=== PATIENT | female | born 1955 | race Caucasian/White ===

== ENCOUNTER → 2017-01-01 | Outpatient (CLI) | payer MEDICARE, OTHER ==
[2016-07-11 15:30] VITALS: BP 154/58
[~2017-01-01] MED LIST: APIX5TAB PO; ASPI-482 PO; CALC-98 PO; ESOM40CA PO; FLEC100T PO; FLUV40CA PO; FLUV80TA PO; INSU100I13 SQ; INSU100I17 SQ; INSU100I27 SQ; INSU100V13 SQ; INSU200I SQ; ISOM1TAB PO; LEVO100T PO; LOSA50TA2 PO; MAGN400C PO; MAGN71.5 PO; METF-620 PO; METO25TA4 PO; MULT1TAB52 PO; Metoprolol Tartrate PO; PANT40TA3 PO; POTA20TA4 PO; REGADENOSON 0.4 MG/5 ML DISP.SYRIN. IV ONE; TORS20TA PO; TORS20TA2 PO; VENTOLIN HFA18 GM IH
--- NOTE | 2017-01-01 13:41 | RAD ---
APPROVED REPORT Test Type: Pharmacological Stress Nurse/Tech: Sophia Dee R.N. Test Indications: Chest pain Cardiac History: Afib, HTN Medications: SEE EMR Medical History: CRI, CVA, DM Resting ECG: SB Resting Heart Rate: 53 bpm Resting Blood Pressure: 122/54mmHg Pretest Chest Pain: None Nurse/Tech Notes S1S2, lungs CTA, denied chest pain or SOA. Consent: The procedure was explained to the patient in lay terms. Informed consent was witnessed. Christopher eout was entered into [facility]. History and Stress Test performed by Sophia Dee R.N. Pharm. Details Pharmacologic stress testing was performed using 0.4mg per 5ml of regadenoson given intravenously ove r 7-10 seconds. Stress Symptoms Slightly SOA, nausea. POST EXERCISE Reason for Termination: Infusion complete Max HR: 93 bpm Max Blood Pressure: 144/64mmHg Blood Pressure response to exercise: Normal blood pressure response during stress. Heart Rate response to exercise: Normal Chest Pain: No. Arrhythmia: No. ST Change: Yes. Please evaluate for possible ST changes in aVR, V1, V2. INTERPRETATION Stress EKG Conclusion: Baseline EKG showed sinus rhythm. Rate dependant right bundle branch block wi thout any definite ischemic changes at peak stress. No arrhythmias. Imaging Protocol IMAGE PROTOCOL: Rest Tc-99m/stress Tc-99m 1 day Rest: Stress: Viability: Radiopharm.Tc99m [id number] Sestamibi Dose11.3mCi 35.6mCi Duration 15min. 10min. Img Date 01/01/2017 01/01/2017 Inj-Img Zirs01wsh. 60min. Rest Admin Site:IV - Left AntecubitalAdministrator:OMER Montejo Stress Admin Site: IV - Left AntecubitalAdministrator: OMER Montejo STRESS DATA End Diast. Vol.90.0mlAv. Heart Rate73.0bpm End Syst. Vol.25.0mlCO Index BSA4.8L/min Myocardial Slak672.0gEject. Exhnxcln33.0% Stress Rates Pk. Fill Rate2.67EDV/secLVtime Pk. Fill 116.38msec Pk. Empty Rate4.21ESV/secLVtime Pk. Npoud656.03msec 1/3 Pk. Fill1.84EDV/sec Stress Scores Regional WT1.00Summed WT15.00 Regional WM0.00Summed WM1.00 Study quality was good. Left Ventricular size was Normal at Rest and Stress. Lung uptake was Normal. Left Ventricular ejection fraction is 72%. The rest and stress images show normal perfusion, normal contraction and thickening. LV Perf. Quant 17 Seg. SSS0.00 17 Seg. SRS0.00 17 Seg. SDS0.00 Stress Defect Extent (% LAD)0.00Rest Defect Extent (% LAD)0.00Rev. Defect Extent (% LAD)0.00 Stress Defect Extent (% LCX) 0.00Rest Defect Extent (% LCX)0.00Rev. Defect Extent (% LCX)0.00 Stress Defect Extent (% RCA)0.00Rest Defect Extent (% RCA)0.00Rev. Defect Extent (% RCA)0.00 Stress Defect Extent (% SHANNEN)0.00Rest Defect Extent (% SHANNEN)0.00Rev. Defect Extent (% SHANNEN)0.00 Conclusion 1. Regadenoson cardioisotope stress test did not show any evidence of ischemia or infarct. 2. Normal left ventricular systolic function with ejection fraction calculated at 72%. 3. Low risk for cardiac events.
== END | disposition home or self-care (01) ==
LOC: NM 10:08
PROVIDERS: ATTEND Internal Medicine Cardiovascular Disease
DX: R07.9 Chest pain, unspecified (principal); R06.02 Shortness of breath
CPT/HCPCS: 78452; 93017; 96374; 96375; 96376; A9500; J2785

== ENCOUNTER 2017-04-18 15:57 | Emergency (ER) | payer MEDICARE, OTHER ==
[~2017-04-18 15:57] MED LIST changes: -REGADENOSON 0.4 MG/5 ML DISP.SYRIN. IV ONE
[2017-04-18] MEDS ORDERED: fentaNYL PF VIAL 100 MCG/2 ML VIAL IV PRN (17:00)
[2017-04-18] MEDS ORDERED: IV NORMAL SALINE 500ML BAG 500 ML IV ONE (17:00)
[2017-04-18] MEDS ORDERED: ONDANSETRON PF 4 MG/2 ML VIAL. IV ONE (17:00)
[2017-04-18 17:05] LABS: BASO % 0 % (0-3); EOS % 2 % (0-3); HEMATOCRIT 33.7 % (36.0-47.0); HEMOGLOBIN 11.3 g/dL (12.0-15.5); LYMPH % 19 % (24-48); MEAN CORPUSCULAR HEMOGLOBIN 31 pg (25-35); MEAN CORPUSCULAR HGB CONC 34 g/dL (31-37); MEAN CORPUSCULAR VOLUME 91 fL (79-100); MONO % 7 % (0-9); NEUT % 71 % (31-73); PLATELET COUNT 289 x10^3/uL (140-400); RED CELL DISTRIBUTION WIDTH 13.7 % (11.5-14.5); WHITE BLOOD COUNT 10.7 x10^3/uL (4.0-11.0)
[2017-04-18 17:07] LABS: BILIRUBIN,URINE NEGATIVE (NEG); GLUCOSE,URINE NEGATIVE (NEG); NITRITE,URINE NEGATIVE (NEG); PROTEIN,URINE NEGATIVE (NEG-TRACE); UROBILINOGEN,URINE 0.2 mg/dL (0.2 mg/dL)
[2017-04-18 17:13] LABS: BACTERIA,URINE MODERATE /HPF (0-FEW); RBC,URINE 0 /HPF (0-2); SQUAMOUS EPITHELIAL CELL,UR MANY /LPF
[2017-04-18] MEDS ORDERED: IOHEXOL 300 MG/ML 75 ML VIAL IV ONE (17:30)
[2017-04-18] MEDS ORDERED: CONTRAST GIVEN MC PRN (17:30)
[2017-04-18 17:41] LABS: CREATININE 1.2 mg/dL (0.6-1.0); GFR 45.2; POTASSIUM 4.1 mmol/L (3.5-5.1)
[2017-04-18 17:47] LABS: ALBUMIN 3.4 g/dL (3.4-5.0); ALBUMIN/GLOBULIN RATIO 0.9 (1.0-1.7); TOTAL BILIRUBIN 0.3 mg/dL (0.2-1.0); TOTAL PROTEIN 7.3 g/dL (6.4-8.2)
--- NOTE | 2017-04-18 18:02 | PHYS DOC ---
Past Medical History Past Medical History: A-Fib, Asthma, Diabetes-Type II, GERD, High Cholesterol, Hypertension, Hypothyroid Past Surgical History: Angioplasty, Cholecystectomy, , Lumbar Laminectomy, Tubal ligation Additional Past Surgical Histo: cataract Alcohol Use: Rarely Drug Use: None Adult General Chief Complaint Chief Complaint: ABDOMINAL PAIN HPI HPI Patient is a 62 year old female who presents with abdominal pain. Patient reports onset of pain at 0800 this morning to right lower quadrant and right mid abdomen. Denies radiation of pain. Reports nausea. Denies fevers or chills, vomiting, diarrhea or constipation, dysuria or hematuria, vaginal bleeding or discharge. Denies history of previous similar pain. History of and cholecystectomy. Review of Systems Review of Systems Constitutional: Denies fever or chills Eyes: Denies change in visual acuity HENT: Denies nasal congestion or sore throat Respiratory: Denies cough or shortness of breath Cardiovascular: Denies chest pain or edema GI: Reports abdominal pain, nausea, denies vomiting, bloody stools or diarrhea : Denies dysuria or hematuria Musculoskeletal: Denies back pain or joint pain Integument: Denies rash or skin lesions Neurologic: Denies headache, focal weakness or sensory changes Current Medications Current Medications Current Medications Medications (Trade) Dose Ordered Sig/Kenroy Start Time Stop Time Status Last Admin Dose Admin Ciprofloxacin (Cipro) 500 mg 1X ONCE 04/18/17 19:00 04/18/17 19:01 DC Fentanyl Citrate (Fentanyl 2ml Vial) 50 mcg PRN Q15MIN PRN 04/18/17 17:00 04/19/17 16:59 04/18/17 17:30 50 MCG Info (Do NOT chart on this entry -- for MONITORING) 1 each PRN DAILY PRN 04/18/17 17:30 04/20/17 17:29 Iohexol (Omnipaque 300 Mg/ml) 75 ml 1X ONCE 04/18/17 17:30 04/18/17 17:31 DC 04/18/17 18:03 75 ML Metronidazole (Flagyl) 500 mg 1X ONCE 04/18/17 19:00 04/18/17 19:01 DC Ondansetron HCl (Zofran) 4 mg 1X ONCE 04/18/17 17:00 04/18/17 17:01 DC 04/18/17 17:29 4 MG Sodium Chloride 500 ml @ 0 mls/hr 1X ONCE 04/18/17 17:00 04/18/17 17:01 DC 04/18/17 17:28 999 MLS/HR Allergies Allergies Allergies Coded Allergies Type Severity Reaction Last Updated Verified Sulfa (Sulfonamide Antibiotics) Allergy Intermediate 07/11/16 No hydrochlorothiazide Allergy Intermediate Rash 07/11/16 Yes hydrocodone Allergy Intermediate 07/11/16 No hydroxyzine Allergy Intermediate 07/11/16 Yes acetaminophen Adverse Reaction Intermediate Nausea and Vomiting 07/11/16 Yes oxycodone Adverse Reaction Intermediate Nausea and Vomiting 07/11/16 Yes Physical Exam Physical Exam Constitutional: Obese, no acute distress, non-toxic appearance. HENT: Normocephalic, atraumatic, bilateral external ears normal, oropharynx moist, nose normal. Eyes: PERRLA, EOMI, conjunctiva normal, no discharge. Neck: supple, no stridor. Cardiovascular: RRR, no murmurs, no edema. Lungs & Thorax: LCTAB, no wheezing, no respiratory distress. Abdomen: soft, right lower quadrant and right mid abdominal tenderness without rebound tenderness, guarding is present, no masses or pulsatile masses, nondistended. Skin: Warm, dry, no erythema, no rash. Back: Right CVA tenderness is present Extremities: No tenderness, no edema. Neurologic: Alert and oriented X 3, no focal deficits noted. Psychologic: Affect normal, judgement normal, mood normal. Current Patient Data Vital Signs Vital Signs Date Time Temp Pulse Resp B/P (MAP) Pulse Ox O2 Delivery O2 Flow Rate FiO2 04/18/17 18:28 81 18 117/56 (76) 95 Room Air 04/18/17 16:10 98.9 98.9 Lab Values Laboratory Tests Test 04/18/17 16:10 04/18/17 16:15 Urine Collection Type Void Urine Color Yellow Urine Clarity Clear Urine pH 5.0 Urine Specific L[place]ner 1.025 Urine Protein Negative mg/dL (NEG-TRACE) Urine Glucose (UA) Negative mg/dL (NEG) Urine Ketones (Stick) Negative mg/dL (NEG) Urine Blood Negative (NEG) Urine Nitrite Negative (NEG) Urine Bilirubin Negative (NEG) Urine Urobilinogen Dipstick 0.2 mg/dL (0.2 mg/dL) Urine Leukocyte Esterase Negative (NEG) Urine RBC 0 /HPF (0-2) Urine WBC 1-4 /HPF (0-4) Urine Squamous Epithelial Cells Many /LPF Urine Bacteria Moderate /HPF (0-FEW) Urine Mucus Marked /LPF White Blood Count 10.7 x10^3/uL (4.0-11.0) Red Blood Count 3.70 x10^6/uL (3.50-5.40) Hemoglobin 11.3 g/dL (12.0-15.5) L Hematocrit 33.7 % (36.0-47.0) L Mean Corpuscular Volume 91 fL (79-100) Mean Corpuscular Hemoglobin 31 pg (25-35) Mean Corpuscular Hemoglobin Concent 34 g/dL (31-37) Red Cell Distribution Width 13.7 % (11.5-14.5) Platelet Count 289 x10^3/uL (140-400) Neutrophils (%) (Auto) 71 % (31-73) Lymphocytes (%) (Auto) 19 % (24-48) L Monocytes (%) (Auto) 7 % (0-9) Eosinophils (%) (Auto) 2 % (0-3) Basophils (%) (Auto) 0 % (0-3) Neutrophils # (Auto) 7.6 x10^3uL (1.8-7.7) Lymphocytes # (Auto) 2.0 x10^3/uL (1.0-4.8) Monocytes # (Auto) 0.8 x10^3/uL (0.0-1.1) Eosinophils # (Auto) 0.2 x10^3/uL (0.0-0.7) Basophils # (Auto) 0.0 x10^3/uL (0.0-0.2) Sodium Level 142 mmol/L (136-145) Potassium Level 4.1 mmol/L (3.5-5.1) Chloride Level 106 mmol/L (98-107) Carbon Dioxide Level 25 mmol/L (21-32) Anion Gap 11 (6-14) Blood Urea Nitrogen 22 mg/dL (7-20) H Creatinine 1.2 mg/dL (0.6-1.0) H Estimated GFR (Cockcroft-Gault) 45.2 BUN/Creatinine Ratio 18 (6-20) Glucose Level 141 mg/dL (70-99) H Calcium Level 9.0 mg/dL (8.5-10.1) Total Bilirubin 0.3 mg/dL (0.2-1.0) Aspartate Amino Transferase (AST) 23 U/L (15-37) Alanine Aminotransferase (ALT) 31 U/L (14-59) Alkaline Phosphatase 92 U/L (46-116) Total Protein 7.3 g/dL (6.4-8.2) Albumin 3.4 g/dL (3.4-5.0) Albumin/Globulin Ratio 0.9 (1.0-1.7) L Laboratory Tests 04/18/17 16:15 Laboratory Tests 04/18/17 16:15 EKG EKG [] Radiology/Procedures Radiology/Procedures [facility] [address] [place], [place] [id number] IMAGING REPORT Signed PATIENT: PAM THOMAS ACCOUNT: [id number] : 1955 LOCATION: ER AGE: 62 SEX: F EXAM STATUS: REG ER ORD. PHYSICIAN: SUNNY MADRID MD REASON: RLQ pain r/o appenditicis PROCEDURE: CT ABD PELV W/ IV CONTRST ONLY CT ABD PELV W/ IV CONTRST ONLY dated 04/18/2017 6:03 PM Indication: Right-sided abdominal pain, pain for 2 days possible appendicitis pain Comparison: No comparison is available. Technique: Contiguous axial imaging of the abdomen and pelvis performed after the administration of 60 cc Isovue-370. One or more of the following individualized dose reduction techniques were utilized for this examination: 1. Automated exposure control 2. Adjustment of the mA and/or kV according to patient size 3. Use of iterative reconstruction technique Findings: Limited images of the lung bases are clear. Heart size mildly enlarged. No pleural or pericardial effusion. Liver, spleen, pancreas, adrenal glands unremarkable. Gallbladder surgically absent. There are 2 calcific stones at the lower pole left kidney measuring 3 to 4 mm in size each. No ureteral stone or hydronephrosis. Kidneys are otherwise unremarkable. There is a focal area of wall thickening and pericolonic inflammatory stranding involving the right colon just proximal to the hepatic flexure. No localized perforation or abscess. The appendix is normal in caliber. No ascites or lymphadenopathy. Images of pelvis show nondistended urinary bladder. Uterus and adnexa are unremarkable. No free fluid or lymphadenopathy. Bone windows show no acute findings. Mild multilevel spondylosis. IMPRESSION: 1. Findings consistent with acute right-sided diverticulitis. No localized perforation or abscess. 2. Normal appendix. 3. Left-sided nephrolithiasis, nonobstructive. 4. Status post cholecystectomy. Electronically signed by: Dmitry Murillo MD (04/18/2017 6:26 PM) [facility] [place] DICTATED and SIGNED BY: DMITRY MURILLO MD DATE: 04/18/171814 CC: HELENA LEON MD; SUNNY MADRID MD; DMITRY BATISTA MD ~ [] Course & Med Decision Making Course & Med Decision Making Pertinent Labs and Imaging studies reviewed. (See chart for details) The patient presents with abdominal pain and flank pain. Gave IV fluids, pain medication, antiemetics. Obtained labs and UA as above. Obtain CT of the abdomen and pelvis which is pending at the end of my shift. Will transfer care to Dr. Leon to disposition patient accordingly. She is in stable condition end of my shift. Sunny Madrid MD I took over care of patient at 1800. Patient's pain remained stable while in the emergency department. The patient's CT scan showed evidence of right-sided diverticulitis. Patient started on Flagyl and Cipro in the emergency department. Patient will continue on 10 day course of Flagyl and Cipro for outpatient treatment. Advised patient to follow-up with primary doctor in 3 days for reevaluation and recommended return to emergency department for any worsening symptoms. Patient voiced understanding and in agreement with treatment plan. Dragon Disclaimer Dragon Disclaimer This electronic medical record was generated, in whole or in part, using a voice recognition dictation system. Departure Departure Impression: Primary Impression: Diverticulitis Disposition: 01 HOME, SELF-CARE Condition: IMPROVED Referrals: DMITRY BATISTA MD (PCP) Patient Instructions: Diverticulitis Additional Instructions: Follow-up with your primary doctor in 3 days for reevaluation. Return to the emergency department for any worsening symptoms. Scripts Ondansetron (ZOFRAN ODT) 4 Mg Tab.rapdis 1 TAB SL Q8HRS Y for NAUSEA/VOMITING, #15 TAB Prov: HELENA LEON MD 04/18/17 Hydrocodone/Apap 5-325 (NORCO 5-325 TABLET) 1 Each Tablet 1-2 TAB PO Q4-6HRS Y for PAIN, #20 TAB Prov: HELENA LEON MD 04/18/17 Ciprofloxacin Hcl (CIPRO) 500 Mg Tablet 1 TAB PO BID, #20 TAB Prov: HELENA LEON MD 04/18/17 Metronidazole (FLAGYL) 500 Mg Tablet 500 MG PO TID, #30 TAB Prov: HELENA LEON MD 04/18/17 Problem Qualifiers Primary Impression: Diverticulitis Diverticulitis site: large intestine Diverticulitis bleeding: without bleeding Diverticulitis complication: without perforation or abscess Qualified Codes: K57.32 - Diverticulitis of large intestine without perforation or abscess without bleeding SUNNY MADRID MD Apr 18, 2017 18:02 HELENA LEON MD Apr 18, 2017 19:12
--- NOTE | 2017-04-18 18:29 | RAD ---
CT ABD PELV W/ IV CONTRST ONLY dated 04/18/2017 6:03 PM Indication: Right-sided abdominal pain, pain for 2 days possible appendicitis pain Comparison: No comparison is available. Technique: Contiguous axial imaging of the abdomen and pelvis performed after the administration of 60 cc Isovue-370. One or more of the following individualized dose reduction techniques were utilized for this examination: 1. Automated exposure control 2. Adjustment of the mA and/or kV according to patient size 3. Use of iterative reconstruction technique Findings: Limited images of the lung bases are clear. Heart size mildly enlarged. No pleural or pericardial effusion. Liver, spleen, pancreas, adrenal glands unremarkable. Gallbladder surgically absent. There are 2 calcific stones at the lower pole left kidney measuring 3 to 4 mm in size each. No ureteral stone or hydronephrosis. Kidneys are otherwise unremarkable. There is a focal area of wall thickening and pericolonic inflammatory stranding involving the right colon just proximal to the hepatic flexure. No localized perforation or abscess. The appendix is normal in caliber. No ascites or lymphadenopathy. Images of pelvis show nondistended urinary bladder. Uterus and adnexa are unremarkable. No free fluid or lymphadenopathy. Bone windows show no acute findings. Mild multilevel spondylosis. IMPRESSION: 1. Findings consistent with acute right-sided diverticulitis. No localized perforation or abscess. 2. Normal appendix. 3. Left-sided nephrolithiasis, nonobstructive. 4. Status post cholecystectomy. Electronically signed by: Dmitry Murillo MD (04/18/2017 6:26 PM) [facility]
[2017-04-18] MEDS ORDERED: metroNIDAZOLE 500 MG TABLET PO ONE (19:00)
[2017-04-18] MEDS ORDERED: CIPROFLOXACIN HCL 250 MG TABLET. PO ONE (19:00)
[2017-04-18] MEDS ORDERED: HYDR-971 PO (19:12)
[2017-04-18] MEDS ORDERED: CIPR500T94 PO (19:12)
[2017-04-18] MEDS ORDERED: METR500T PO (19:12)
[2017-04-18] MEDS ORDERED: ONDA4TAB10 SL (19:12)
[2017-04-18 19:31] VITALS: BP 111/63
== END 2017-04-18 19:31 | disposition home or self-care (01) ==
LOC: ER 15:57
DX: K57.92 Diverticulitis of intestine, part unspecified, without perforation or abscess without bleeding (principal); E11.9 Type 2 diabetes mellitus without complications; K21.9 Gastro-esophageal reflux disease without esophagitis; E78.00 Pure hypercholesterolemia, unspecified; I10 Essential (primary) hypertension; J45.909 Unspecified asthma, uncomplicated; I48.91 Unspecified atrial fibrillation; E03.9 Hypothyroidism, unspecified; Z90.49 Acquired absence of other specified parts of digestive tract; Z98.51 Tubal ligation status; Z98.890 Other specified postprocedural states; Z95.5 Presence of coronary angioplasty implant and graft; Z88.2 Allergy status to sulfonamides; Z88.5 Allergy status to narcotic agent; Z88.6 Allergy status to analgesic agent; Z88.8 Allergy status to other drugs, medicaments and biological substances
CPT/HCPCS: 36415; 74177; 80053; 81001; 85025; 87086; 96361; 96374; 96375; 99285; J2405; J3010; J7040; Q9967

== ENCOUNTER → 2017-09-25 | Outpatient (CLI) | payer MEDICARE, OTHER | END | disposition home or self-care (01) | LOC: KCIC DEXA 13:32 | DX: Z12.31 Encounter for screening mammogram for malignant neoplasm of breast (principal); Z13.820 Encounter for screening for osteoporosis; M81.0 Age-related osteoporosis without current pathological fracture; M85.88 Other specified disorders of bone density and structure, other site; Z78.0 Asymptomatic menopausal state | CPT/HCPCS: 77067; 77080 ==

== ENCOUNTER → 2017-09-29 | Outpatient (CLI) | payer MEDICARE, OTHER | END | disposition home or self-care (01) | LOC: KCIC US 13:47 | DX: R92.8 Other abnormal and inconclusive findings on diagnostic imaging of breast (principal) | CPT/HCPCS: 76641 ==

== ENCOUNTER 2018-05-12 09:27 | Observation (INO) | payer MEDICARE, OTHER ==
[~2018-05-12] VITALS: Ht 172.7 cm; Wt 112.5 kg
[2018-05-12] VITALS (12 sets, daily range): BP systolic 117–172; BP diastolic 53–76
[~2018-05-12 09:27] MED LIST changes: +CIPR500T94 PO; +HYDR-971 PO; -METF-620 PO; +METF10007 PO; +METR500T PO; +ONDA4TAB10 SL
[2018-05-12 10:02] LABS: HEMATOCRIT 35.6 % (36.0-47.0); HEMOGLOBIN 12.2 g/dL (12.0-15.5); RED BLOOD COUNT 3.84 x10^6/uL (3.50-5.40); RED CELL DISTRIBUTION WIDTH 13.6 % (11.5-14.5); WHITE BLOOD COUNT 7.9 x10^3/uL (4.0-11.0)
[2018-05-12 10:14] LABS: CALCIUM 9.3 mg/dL (8.5-10.1); CREATININE 1.5 mg/dL (0.6-1.0); GFR 34.9; POTASSIUM 4.3 mmol/L (3.5-5.1)
[2018-05-12 10:18] LABS: PROTHROMBIN TIME PATIENT 13.1 SEC (11.7-14.0)
[2018-05-12] MEDS ORDERED: IODIXANOL 320 MG/ML 100 ML VIAL. ONE (11:12)
[2018-05-12] MEDS ORDERED: LIDOCAINE 1% PF 30 ML VIAL. ONE (11:12)
[2018-05-12] MEDS ORDERED: fentaNYL PF VIAL 100 MCG/2 ML VIAL ONE (13:58)
[2018-05-12] MEDS ORDERED: MIDAZOLAM HCL/PF 2 MG/2 ML VIAL. ONE (13:58)
--- NOTE | 2018-05-12 14:03 | PDOC ---
MODERATE SEDATION ASSESSMENT RISKS/ALTERNATIVES Risks/Alternatives Risks and alternatives of this type of sedation and procedure discussed with: RISK/ALTERNATIVES: Patient H & P ON CHART H & P H & P on chart and reviewed for co-morbid conditions and appropriate labs. H&P ON CHART: Yes STATUS PREG STATUS ASSESSED: Yes MEDS/ALLERGIES REVIEWED Meds/Allergies Reviewed Medications and Allergies including time and route of recently administered narcotics and sedatives. MEDS/ALLERGIES REVIEWED: Yes ASA RATING ASA RATING: II AIRWAY ASSESSMENT Airway Assessment Airway patency, oral function limitations, presence of caps, crowns, dentures, partials, and ability to extend neck assessed. AIRWAY ASSESSMENT: Yes MALLAMPATI SCORE MALLAMPATI SCORE: II PRE-SEDATION ASSESSMENT PRE-SEDATION ASSESSMENT: Yes LINCOLN SMITH MD May 12, 2018 14:03
[2018-05-12] MEDS ORDERED: NITROGLYCERIN PREMIX 250 ML IV ONE ×2 (14:11→14:45)
[2018-05-12] MEDS ORDERED: IODIXANOL 320 MG/ML 100 ML VIAL. IART ONE (14:45)
[2018-05-12] MEDS ORDERED: MIDAZOLAM HCL/PF 2 MG/2 ML VIAL. IV ONE (14:45)
[2018-05-12] MEDS ORDERED: fentaNYL PF VIAL 100 MCG/2 ML VIAL IV ONE (14:45)
[2018-05-12] MEDS ORDERED: LIDOCAINE 1% PF 30 ML VIAL. INJ ONE (14:45)
[2018-05-12] MEDS ORDERED: CONTRAST GIVEN. MC PRN (14:45)
[2018-05-12] MEDS ORDERED: IV NORMAL SALINE 1000ML BAG 1,000 ML IV SCH (15:05)
[2018-05-12] MEDS ORDERED: 0.9 % SODIUM CHLORIDE 10 ML DISP.SYRIN. IV PRN (15:15)
[2018-05-12] MEDS ORDERED: NITROGLYCERIN SUBLINGUAL 0.4 MG BOTTLE OF 25. SL PRN (15:15)
[2018-05-12] MEDS ORDERED: METOPROLOL TART IMMED RELEASE 25 MG TABLET. PO ONE (16:00)
[2018-05-12] MEDS ORDERED: TRAM50TA PO (16:09)
[2018-05-12] MEDS ORDERED: PANT20TA2 PO (16:09)
[2018-05-12] MEDS ORDERED: METO25TA4 PO (16:09)
[2018-05-12] MEDS ORDERED: MAGN400C PO (16:09)
[2018-05-12] MEDS ORDERED: LOSA100T7 PO (16:09)
[2018-05-12] MEDS ORDERED: traMADol 50 MG TABLET PO PRN (16:30)
[2018-05-12] MEDS ORDERED: NON FORMULARY ITEM (Albuterol Sulfate (Ventolin Hfa Inhaler) 2 PUFF) IH SCH (16:30)
[2018-05-12] MEDS ORDERED: ANTI-COAG MONITOR BY PHARMACY. MC PRN (16:45)
[2018-05-12] MEDS ORDERED: INFLUENZA VAX SCREEN BY RX. MC ONE (17:00)
[2018-05-12] MEDS ORDERED: INSULIN LISPRO 30 UNIT SQ SCH (21:00)
[2018-05-12] MEDS ORDERED: INSULIN GLARGINE 300 UNITS/3 ML INSULN.PEN. SQ SCH (21:00)
[2018-05-12] MEDS ORDERED: FLECAINIDE ACETATE 50 MG TABLET. PO SCH (21:00)
[2018-05-12] MEDS ORDERED: MAGNESIUM OXIDE 500 MG PO SCH (21:00)
[2018-05-12] MEDS ORDERED: METOPROLOL TART IMMED RELEASE 25 MG TABLET. PO SCH (21:00)
[2018-05-12] MEDS ORDERED: APIXABAN 5 MG TABLET. PO SCH (21:00)
[2018-05-13] MEDS ORDERED: LEVOTHYROXINE 100 MCG TABLET PO SCH (07:00)
[2018-05-13] MEDS ORDERED: PANTOPRAZOLE 40 MG TABLET.DR. PO SCH (07:30)
[2018-05-13] MEDS ORDERED: FLUVASTATIN SODIUM 80 MG PO SCH (09:00)
[2018-05-13] MEDS ORDERED: POTASSIUM CHLORIDE 20 MEQ TABLET.ER. PO SCH (09:00)
[2018-05-13] MEDS ORDERED: ASPIRIN ENTERIC COATED 81 MG TABLET.DR. PO SCH (09:00)
[2018-05-13] MEDS ORDERED: TORSEMIDE 20 MG TABLET. PO SCH (09:00)
[2018-05-13] MEDS ORDERED: LOSARTAN POTASSIUM 50 MG TABLET. PO SCH (09:00)
[2018-05-13] MEDS ORDERED: MULTIVITAMIN with MINERAL TABLET. PO SCH (09:00)
--- NOTE | 2018-05-13 12:03 | CARD ---
MR#: [id number] Date of Study: 05/12/2018 Ordering Physician: SRINIVASAN HALEY, Referring Physician: SRINIVASAN HALEY, Tech: Yvette Gunn, RT (R) APPROVED REPORT Procedures Left heart catheterization Selective coronary angiogram The patient is a 63-year-old female with a history of paroxysmal atrial fibrillation. She also has a history of recurrent episodes of chest discomfort and increase dyspnea on exertion. These symptoms farmer ve been increasing over the past 4-6 weeks. She has risk factors include hypertension and hyperlipid emia. In the setting of her new onset and progressive chest pain and risk factors cardiac catheteriza tion was recommended. Risks and benefits were discussed and the patient agreed to proceed. After informed consent was obtained the patient was brought to the heart catheterization lab. The are a of the right femoral artery was prepared usual manner with Betadine, sterile draping and local anes thetic. An 18-gauge needle was used to enter the right femoral artery, a wire placed and a 6 Mohawk s enrique placed over the wire. A 6 Mohawk JL4 diagnostic catheter was advanced to the ascending aorta an d used to engage the left coronary system with sequential injections in various views. A 6 [place]awk NightstaRxms right diagnostic catheter was advanced to the ascending aorta. It was used to engage the right coronary artery and sequential injections in various views were obtained. A pigtail catheter was adva nced to the ascending aorta and the left ventricle. Pressures were obtained. No left ventriculogram w as performed secondary to chronic kidney disease. Pullback pressures were measured. The catheter was removed from the patient. The sheath was removed from the patient and hemostasis was obtained by dire ct pressure. The patient was moved to the holding area in stable condition. Findings. Hemodynamics. Left ventricle 138/6, 14. Aortic root of 136/68 Coronaries Left main. The left main was a normal-sized vessel with no lesions. Left anterior descending. The LAD was a moderate size vessel with normal distribution. It had very mi ld mid tapering of 10%. Left circumflex. The left circumflex is a moderate size vessel. It had dominant distribution. It had no lesions. Right coronary artery. The right coronary artery was a nondominant vessel. It had no lesions. <Conclusion> No angiographic evidence of coronary artery disease. No evidence of aortic stenosis. Signed by : Srinivasan Haley MD Electronically Approved : 05/13/2018 12:02:31
== END 2018-05-12 21:55 | disposition home or self-care (01) ==
LOC: CCL 09:27 → 2 NORTH 14:49
PROVIDERS: ADMIT Internal Medicine Cardiovascular Disease; ATTEND Internal Medicine Cardiovascular Disease
DX: I25.10 Atherosclerotic heart disease of native coronary artery without angina pectoris (principal)
CPT/HCPCS: 36415; 80048; 82962; 85027; 85610; 85730; 90471; 90756; 93458; 96365; 96366; C1769; C1892; G0378; G0379; J1644; J2250; J3010; J3490; J7030; 99152; 99153; J1815; Q2035

== ENCOUNTER 2019-05-06 10:25 | Day surgery (SDC) | payer MEDICARE, OTHER ==
[~2019-05-06 10:25] MED LIST changes: +AMLO10TA8 PO; +AZIT1PAC PO; +BENZ-8 PO; +CHOL10003 PO; +CRESTOR20 MG PO; +HYDR-2868 PO; +HYDR-3164 PO; -HYDR-971 PO; +IPRA3AMP29 NEB; +IV RINGERS,LACTATED 1000ML 1,000 ML IV SCH; +LIDOCAINE 1% PF 2 ML VIAL. ID PRN; +LOSA-73 PO; +LOSA100T14 PO; -LOSA50TA2 PO; +PANT20TA2 PO; -PANT40TA3 PO; +PANT40TA77 PO; +PRED-220 PO; +PROCHLORPERAZINE 10 MG/2 ML VIAL. IV PRN; +TRAM50TA PO; +fentaNYL PF VIAL 100 MCG/2 ML VIAL IV PRN
--- NOTE | 2019-05-06 11:08 | EKG ---
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 RBBB CONSIDER REPEAT EKG - CANNOT RULE OUT AFIB Electronically Signed On 05-22-2019 14:52:44 CDT by Daniel Leiva MD
[2019-05-06 11:15] LABS: HEMATOCRIT 36.8 % (36.0-47.0); HEMOGLOBIN 12.6 g/dL (12.0-15.5); RED BLOOD COUNT 4.08 x10^6/uL (3.50-5.40); RED CELL DISTRIBUTION WIDTH 16.5 % (11.5-14.5); WHITE BLOOD COUNT 9.7 x10^3/uL (4.0-11.0)
[2019-05-06 11:18] LABS: CREATININE 1.2 mg/dL (0.6-1.0); GFR 44.9; POTASSIUM 3.7 mmol/L (3.5-5.1)
[2019-05-06] MEDS ORDERED: LIDOCAINE 2% VISCOUS 15 ML SOLUTION. ONE (11:26)
[2019-05-06] MEDS ORDERED: LIDOCAINE 2% TOPICAL JELLY 30GM TUBE. TP ONE ×2 (11:26→11:30)
[2019-05-06] MEDS ORDERED: BENZOCAINE ONE 20% MUCOSAL SPRAY. MM (11:30)
[2019-05-06] MEDS ORDERED: LIDOCAINE 2% VISCOUS 15 ML SOLUTION. SWSW ONE (11:30)
[2019-05-06] MEDS ORDERED: INSULIN LISPRO 100 UNIT/ML 3ML VIAL for OP,RR ONLY. SQ PRN (11:30)
[2019-05-06] MEDS ORDERED: PROPOFOL 40 ML IV ONE (12:02)
[2019-05-06 13:10] VITALS: BP 131/56
--- NOTE | 2019-05-06 14:28 | CARD ---
MR#: [id number] Date of Study: 05/06/2019 Ordering Physician: SRINIVASAN HALEY, Referring Physician: SRINIVASAN HALEY, Tech: Viviana Roberson APPROVED REPORT EXAM: Transesophageal echocardiogram with color flow Doppler. INDICATION COPD Atrial Fibrillation Echo Enhancing Agent Indication: Rule Out Septal Defect Agent/Amount Used: Agitated Saline 10mL RISK FACTORS Hypertension Hyperlipidemia Diabetes Reason For Test : Rule out Intracardiac Thrombus. PROCEDURE After obtaining informed consent, patient underwent transesophageal echo in the PACU. Type of Sedation : General Anesthesia Transesophageal probe was inserted and advanced into esophagus by Srinivasan Haley MD. The MAXI was performed without complications. Throughout the procedure, the blood pressure, pulse oximetry, cardiac rhythm, and rate were monitored . LEFT VENTRICLE The left ventricle is normal size. There is normal left ventricular wall thickness. The left ventricu lar systolic function is normal and the ejection fraction is within normal range. The Ejection Fracti on is 55-60%. There is normal LV segmental wall motion. Diastology not performed No left ventricle th rombus noted on this study. RIGHT VENTRICLE The right ventricle is normal size. There is normal right ventricular wall thickness. The right ventr icular systolic function is normal. ATRIA The left atrium is mild to moderately dilated. The right atrium size is normal. The interatrial septu m is intact with no evidence for an atrial septal defect or patent foramen ovale as noted on 2-D or D oppler imaging. Negative bubble study. There is no thrombus noted in the left atrial appendage. AORTIC VALVE The aortic valve is normal in structure and function. Doppler and Color Flow revealed no significant aortic regurgitation. There is no significant aortic valvular stenosis. MITRAL VALVE The mitral valve is normal in structure and function. There is no evidence of mitral valve prolapse. There is no mitral valve stenosis. Doppler and Color-flow revealed mild mitral regurgitation. TRICUSPID VALVE The tricuspid valve is normal in structure and function. Doppler and Color Flow revealed trace tricus pid regurgitation. There is no tricuspid valve stenosis. PULMONIC VALVE The pulmonary valve is normal in structure and function. Doppler and Color Flow revealed no pulmonic valvular regurgitation. GREAT VESSELS The aortic root is normal in size. Critical Notification Critical Value: No <Conclusion> The left ventricle is normal size. The left ventricular systolic function is normal and the ejection fraction is within normal range. The Ejection Fraction is 55-60%. The left atrium is mild to moderately dilated. The interatrial septum is intact with no evidence for an atrial septal defect or patent foramen ovale as noted on 2-D or Doppler imaging. Negative bubble study. There is no thrombus noted in the left atrial appendage. There is no significant aortic valvular stenosis. Doppler and Color Flow revealed no significant aortic regurgitation. Doppler and Color-flow revealed mild mitral regurgitation. Doppler and Color Flow revealed trace tricuspid regurgitation. Signed by : Srinivasan Haley MD Electronically Approved : 05/06/2019 14:28:23
== END 2019-05-06 13:30 | disposition home or self-care (01) ==
LOC: SURG 10:25
PROVIDERS: ATTEND Internal Medicine Cardiovascular Disease
DX: I48.91 Unspecified atrial fibrillation (principal); I08.1 Rheumatic disorders of both mitral and tricuspid valves; J44.9 Chronic obstructive pulmonary disease, unspecified; E03.9 Hypothyroidism, unspecified; I12.9 Hypertensive chronic kidney disease with stage 1 through stage 4 chronic kidney disease, or unspecified chronic kidney disease; E11.22 Type 2 diabetes mellitus with diabetic chronic kidney disease; N18.2 Chronic kidney disease, stage 2 (mild); D50.9 Iron deficiency anemia, unspecified; G47.30 Sleep apnea, unspecified; M19.90 Unspecified osteoarthritis, unspecified site; E78.5 Hyperlipidemia, unspecified; E66.9 Obesity, unspecified; Z79.82 Long term (current) use of aspirin; Z79.899 Other long term (current) drug therapy; Z86.73 Personal history of transient ischemic attack (TIA), and cerebral infarction without residual deficits; Z98.51 Tubal ligation status; Z90.49 Acquired absence of other specified parts of digestive tract; Z98.891 History of uterine scar from previous surgery; Z83.3 Family history of diabetes mellitus; Z82.49 Family history of ischemic heart disease and other diseases of the circulatory system; Z88.2 Allergy status to sulfonamides; Z88.8 Allergy status to other drugs, medicaments and biological substances; Z98.890 Other specified postprocedural states; Z98.41 Cataract extraction status, right eye; Z98.42 Cataract extraction status, left eye; Z79.4 Long term (current) use of insulin; Z96.1 Presence of intraocular lens
CPT/HCPCS: 36415; 80048; 82962; 85027; 93005; 93306; 93312; 93325; J2704; 93320

== ENCOUNTER → 2019-12-27 | Outpatient (CLI) | payer MEDICARE, OTHER ==
[~2019-12-27] MED LIST changes: -IV RINGERS,LACTATED 1000ML 1,000 ML IV SCH; +LEVO-101 PO; -LEVO100T PO; -LIDOCAINE 1% PF 2 ML VIAL. ID PRN; -PROCHLORPERAZINE 10 MG/2 ML VIAL. IV PRN; -fentaNYL PF VIAL 100 MCG/2 ML VIAL IV PRN
--- NOTE | 2019-12-28 08:44 | RAD ---
MR#: [id number] Date of Study: 12/27/2019 Ordering Physician: LINCOLN SMITH, Referring Physician: LINCOLN SMITH, Tech: ADAN Quiroz, RDAZ, RTR APPROVED REPORT Patient Location : OUT-PATIENT Indications Lower Extremity Edema : Bilateral Findings Grayscale images of the bilateral saphenofemoral junctions, greater and lesser saphenous veins are gr ossly unremarkable. The right great saphenous vein measures 13 mm and the left great saphenous vein measured 9.1 mm. Bot h of these veins do not demonstrate any evidence of reflux. Negative for reflux in the bilateral les ser saphenous veins. Critical Notification Critical Value: No <Conclusion> 1. No significant reflux bilaterally in the lower extremities. Signed by : Daniel Leiva, Electronically Approved : 12/28/2019 08:44:24
--- NOTE | 2019-12-28 08:46 | RAD ---
MR#: [id number] Date of Study: 12/27/2019 Ordering Physician: LINCOLN SMITH, Referring Physician: LINCOLN SMITH, Tech: ADAN Quiroz, [facility], RTR APPROVED REPORT Bilateral Lower Extremity Venous Study for DVT Patient Location: OUT-PATIENT Indications edema Findings Grayscale images of the bilateral lower extremity deep veins were extremely limited due to obesity. Grossly, the common femoral vein and proximal superficial femoral vein appear to be compressible with normal color Doppler flow. The popliteal vein and below-knee veins were not well visualized. Critical Notification Critical Value: No <Conclusion> 1. Limited venous evaluation for DVT due to body habitus, grossly no common femoral or proximal supe rficial femoral vein DVT noted. Signed by : Daniel Leiva, Electronically Approved : 12/28/2019 08:45:45
== END | disposition home or self-care (01) ==
LOC: US 13:11
PROVIDERS: ATTEND Internal Medicine Cardiovascular Disease
DX: R60.0 Localized edema (principal); E66.9 Obesity, unspecified
CPT/HCPCS: 93970

== ENCOUNTER → 2020-10-23 | Outpatient (CLI) | payer MEDICARE, OTHER ==
[~2020-10-23] MED LIST changes: +AMLO-187 PO; -AMLO10TA8 PO; -FLUV80TA PO; +FLUV80TA2 PO; +MULT-445 PO; -MULT1TAB52 PO
--- NOTE | 2020-10-23 15:31 | CARD ---
MR#: [id number] Date of Study: 10/23/2020 Ordering Physician: LINCOLN SMITH, Referring Physician: LINCOLN SMITH, Tech: Tori Gunn [facility] APPROVED REPORT EXAM: Two-dimensional and M-mode echocardiogram with Doppler and color Doppler. Other Information Quality : Good Rhythm : Atrial Fibrillation INDICATION Atrial Fibrillation 2D DIMENSIONS Left Atrium(2D)4.4 (1.6-4.0cm)IVSd1.1 (0.7-1.1cm) Aortic Root(2D)3.0 (2.0-3.7cm)LVDd5.4 (3.9-5.9cm) LVOT Diameter2.2 (1.8-2.4cm)PWd1.0 (0.7-1.1cm) LVDs3.8 (2.5-4.0cm)FS (%) 29.3 % SV77.6 mlLVEF(%)55.8 (>50%) Aortic Valve AoV Peak Sid.127.1cm/sAoV VTI26.1cm AO Peak GR.6.5mmHgLVOT Peak Sid.83.8cm/s LVOT VTI 17.21cmAO Mean GR.4mmHg KENY (VMAX)2.48lk2OLZ (VTI)2.60cm2 Mitral Valve MV E Lpwxxiap316.6cm/sMV DECEL CIVX573fw MV A Whhfofrg78.2cm/sMV PFJ09ei E/A Ratio2.7MVA (PHT)4.06cm2 Tricuspid Valve TR P. Dgktwwkx245pt/sRAP VCAOTKYH4svIm TR Peak Gr.20toNtDTPY35wxDx LEFT VENTRICLE The left ventricle is normal size. There is normal left ventricular wall thickness. The left ventricu lar systolic function is normal. The Ejection Fraction is 55-60%. There is normal LV segmental wall m otion. RIGHT VENTRICLE The right ventricle is normal size. The right ventricular systolic function is normal. ATRIA The left atrium is mildly dilated. The right atrium size is normal. The interatrial septum is intact with no evidence for an atrial septal defect or patent foramen ovale as noted on 2-D or Doppler imagi ng. AORTIC VALVE The aortic valve is calcified but opens well. Doppler and Color Flow revealed no significant aortic r egurgitation. There is no significant aortic valvular stenosis. MITRAL VALVE The mitral valve is calcified but opens well. Mitral annular calcification is mild. There is no evide nce of mitral valve prolapse. There is no mitral valve stenosis. Doppler and Color-flow revealed mild mitral regurgitation. TRICUSPID VALVE The tricuspid valve is normal in structure and function. Doppler and Color Flow revealed trace to mil d tricuspid regurgitation. There is mild to moderate pulmonary hypertension. The PA pressure was katlyn mated at 41 mmHg. There is no tricuspid valve stenosis. PULMONIC VALVE The pulmonic valve is not well visualized. Doppler and Color Flow revealed no pulmonic valvular regur gitation. There is no pulmonic valvular stenosis. GREAT VESSELS The aortic root is normal in size. The ascending aorta is not well seen. The IVC is normal in size an d collapses >50% with inspiration. PERICARDIAL EFFUSION There is no evidence of significant pericardial effusion. Critical Notification Critical Value: No <Conclusion> The left ventricular systolic function is normal. The Ejection Fraction is 55-60%. There is normal LV segmental wall motion. Mild mitral regurgitation. Trace to mild tricuspid regurgitation. The PA pressure was estimated at 41 mmHg. There is no evidence of significant pericardial effusion. Signed by : Perez Villalba, Electronically Approved : 10/23/2020 15:31:41
== END ==
LOC: ECHO 13:33
PROVIDERS: ATTEND Internal Medicine Cardiovascular Disease
DX: I08.3 Combined rheumatic disorders of mitral, aortic and tricuspid valves (principal); I48.91 Unspecified atrial fibrillation
CPT/HCPCS: 93306

== ENCOUNTER → 2020-11-06 | Outpatient (CLI) | payer MEDICARE, OTHER ==
--- NOTE | 2020-11-06 14:52 | KCIC ---
EXAM: Bilateral diagnostic mammogram; left breast sonogram. HISTORY: 65-year-old female presents with a left breast lump. TECHNIQUE: Full-field digital craniocaudal and mediolateral oblique views of both breasts are obtaine d for evaluation. An exaggerated craniocaudal view of the left breast is also obtained. tailor's aide d detection was applied. Sonographic imaging of the left breast targeted to the site of palpable conc asher was performed. COMPARISON: 12/26/2019 and 03/06/2015 BREAST PARENCHYMAL DENSITY: Level B - Scattered fibroglandular densities. FINDINGS: There is no new suspicious mass, microcalcification or region of architectural distortion. There is stable areas of nodularity and asymmetry within both breasts. This includes a suspected intr amammary lymph node within the 3:00 position of the left breast at mid to posterior depth. There is n o suspicious mammographic finding at the site of palpable concern within the posterior superior breas t. Sonographic imaging of the left breast demonstrates no suspicious finding at the 12:00 position 15 cm from the nipple. IMPRESSION: 1. No suspicious mammographic or sonographic correlate for a palpable abnormality within the posterio r superior left breast. 2. No new suspicious mammographic finding. 3. BI-RADS Category 2: Benign finding(s). RECOMMENDATION: Annual mammography is recommended. Continued clinical follow-up of palpable abnormali ties is recommended. Negative imaging should not preclude the decision to biopsy a palpable abnormali ty if there is continuing concern. If your mammogram demonstrates that you have dense breast tissue, which could hide abnormalities, and if you have other risk factors for breast cancer that have been identified, you might benefit from s upplemental screening tests that may be suggested by your ordering physician. Dense breast tissue, i n and of itself, is a relatively common condition. This information is not provided to cause undue c oncern, but rather to raise your awareness and to promote discussion with your physician regarding th e presence of other risk factors, in addition to dense breast tissue. A report of your mammography re sults will be sent to you and your physician. You should contact your physician if you have any ques tions or concerns regarding this report. Mammography is a sensitive method for finding small breast cancers, but it does not detect them all a nd is not a substitute for careful clinical examination. A negative mammogram does not negate a clin ically suspicious finding and should not result in delay in biopsying a clinically suspicious abnorma lity. PQRS compliance statement - Patient information was entered into a reminder system with a target due date for the next mammogram. "Our facility is accredited by the [employer] Mammography Program." Electronically signed by: Mireya Kapadia MD (11/06/2020 2:49 PM) [id number]
== END ==
LOC: US 13:43
PROVIDERS: ATTEND Family Medicine
DX: R22.32 Localized swelling, mass and lump, left upper limb (principal)
CPT/HCPCS: 76641; 77066

== ENCOUNTER 2021-01-10 13:59 | Emergency (ER) | payer MEDICARE, OTHER ==
[~2021-01-10] VITALS: Ht 172.7 cm; Wt 118.1 kg
[2021-01-10 15:31] VITALS: BP 178/65
--- NOTE | 2021-01-10 16:12 | RAD ---
EXAM: LEFT KNEE, 3 VIEWS. HISTORY: Left knee pain. COMPARISON: None. FINDINGS: No fractures are identified. There are small to moderate osteophytes along all 3 compartments. Joint spaces are preserved. Alignment is normal. There is no joint effusion. There is subcutaneous edema wi thin the visualized leg. IMPRESSION: 1. Mild tricompartmental osteoarthritis. 2. Subcutaneous edema. No joint effusion. Electronically signed by: Luci Holcomb MD (01/10/2021 4:09 PM) [facility]
--- NOTE | 2021-01-10 16:18 | RAD ---
EXAMINATION: US DPLX VENOUS EXTREMITY LOWER LT (LOWER EXTREMITY VENOUS ULTRASOUND) CLINICAL HISTORY: Left lower extremity pain and swelling TECHNIQUE: Sonographic grayscale images obtained of the left lower extremity deep venous system with color flow Doppler, compression, and augmentation techniques as indicated. Images obtained and store d in a permanent archive. COMPARISON: None FINDINGS: No evidence of absent flow or incompressibility within the common femoral vein, femoral vein, or popl iteal vein. Visualized calf veins appear patent on limited evaluation. IMPRESSION: No evidence of left lower extremity DVT. Electronically signed by: Akil Samuel DO (01/10/2021 4:16 PM) [facility]
[2021-01-10] MEDS ORDERED: TRAM50TA PO (16:37)
--- NOTE | 2021-01-10 16:37 | ED.ADGEN ---
Past Medical History Past Medical History: A-Fib, Asthma, Diabetes-Type I, Diabetes-Type II, GERD, High Cholesterol, Hypertension, Hypothyroid Past Surgical History: Angioplasty, Cholecystectomy, , Lumbar Laminectomy, Tubal ligation Additional Past Surgical Histo: cataract, CARDIA STENT,CARDIAC OBLATION Smoking Status: Never Smoker Alcohol Use: Rarely Drug Use: None General Adult EDM: Chief Complaint: LOWER EXT PAIN HPI: HPI: Patient is a 65-year-old female who presents to the emergency room complaining of left knee pain. Patient states that 1 week ago she was walking with her walker when she felt her left knee pop and then heard what sounded like a rippi ng noise. She has torn her ACL and MCL on the other knee previously and states this feels similar. She has been trying to ice it at home but the pain continues to get worse. She is having a hard time getting around at home due to the pain. She denies any change in sensation. She is able to bend it, however it is significantly painful. She denies any falls when this did occur. She denies any other injuries. Review of Systems: Review of Systems: Complete ROS is negative unless otherwise documented in HPI Allergies: Allergies: Allergies Coded Allergies Type Severity Reaction Last Updated Verified hydrochlorothiazide Allergy Intermediate Rash 02/07/19 Yes hydroxyzine Allergy Intermediate Unknown 12/27/19 Yes Sulfa (Sulfonamide Antibiotics) Allergy Mild Rash 12/27/19 Yes acetaminophen Allergy Mild Nausea and Vomiting 12/27/19 Yes hydrocodone Allergy Mild Rash 12/27/19 Yes oxycodone Adverse Reaction Intermediate Nausea and Vomiting 02/07/19 Yes Physical Exam: PE: General: Awake, alert, NAD. Well Nourished, well hydrated. Cooperative HEENT: Atraumatic, EOMI, PERRL, airway patent, moist oral mucosa Neck: Supple, trachea midline Respiratory: CTA bilaterally, normal effort, no wheezing/crackles CV: RRR, no murmur, cap refill <2 GI: Soft, nondistended, nontender, no masses MSK: Left knee: Warmth and swelling to the medial left knee, no joint effusion, normal range of motion, intact distal sensation Skin: Warm, dry, intact Neuro: A&O x3, speech NL, sensory and motor grossly intact, no focal deficits Psych: Normal affect, normal mood, not suicidal or homicidal Current Patient Data: Vital Signs: Vital Signs Date Time Temp Pulse Resp B/P (MAP) Pulse Ox O2 Delivery O2 Flow Rate FiO2 01/10/21 15:31 98.1 65 18 178/65 (102) 98 Room Air 98.1 EKG: EKG: [] Heart Score: C/O Chest Pain: N/A Risk Factors: Risk Factors: DM, Current or recent (<one month) smoker, HTN, HLP, family history of CAD, obesity. Risk Scores: Score 0 - 3: 2.5% MACE over next 6 weeks - Discharge Home Score 4 - 6: 20.3% MACE over next 6 weeks - Admit for Clinical Observation Score 7 - 10: 72.7% MACE over next 6 weeks - Early Invasive Strategies Radiology/Procedures: Radiology/Procedures: [] Course & Med Decision Making: Course & Med Decision Making Pertinent Labs and Imaging studies reviewed. (See chart for details) Patient is a 65-year-old female who presents to the emergency room complaining of knee pain. X-ray was done and is normal. Due to patient swelling and pain behind the knee ultrasound will be done to rule out a DVT. DVT study is negative. Patient was placed in a knee immobilizer. Recommended that she follow-up with orthopedic surgery for an MRI. Patient's test results and vitals while in the ED were fully reviewed and discussed with the patient. Patient is stable and at this time does not need admission to the hospital. We have discussed strict return precautions and the importance of following up with their Primary Care Physician. Patient stated understanding and was given an opportunity to ask any questions. Patient is in agreement with plan. Juan J Disclaimer: Juan J Disclaimer: This electronic medical record was generated, in whole or in part, using a voice recognition dictation system. Departure Departure Impression: Primary Impression: Knee sprain Disposition: HOME / SELF CARE / HOMELESS Condition: STABLE Referrals: RYAN BATISTA MD (PCP) TONI ROSS MD Patient Instructions: Knee - Cartilage (Meniscus) Injury Additional Instructions: Please call Orthopedic Surgery today to make an appointment Scripts Tramadol Hcl (TRAMADOL HCL) 50 Mg Tablet 50 MG PO Q6HRS PRN for PAIN for 7 Days, #28 TAB Prov: MELCHOR HUYNH MD 01/10/21 MELCHOR HUYNH MD January 10, 2021 16:37
== END 2021-01-10 17:09 | disposition home or self-care (01) ==
LOC: ER 13:59
DX: S83.92XA Sprain of unspecified site of left knee, initial encounter (principal); I48.91 Unspecified atrial fibrillation; J45.909 Unspecified asthma, uncomplicated; E11.9 Type 2 diabetes mellitus without complications; K21.9 Gastro-esophageal reflux disease without esophagitis; E78.00 Pure hypercholesterolemia, unspecified; I10 Essential (primary) hypertension; E03.9 Hypothyroidism, unspecified; Z98.61 Coronary angioplasty status; Z88.8 Allergy status to other drugs, medicaments and biological substances; Z88.2 Allergy status to sulfonamides; Z88.5 Allergy status to narcotic agent; X50.9XXA Other and unspecified overexertion or strenuous movements or postures, initial encounter; Y93.01 Activity, walking, marching and hiking; Y92.89 Other specified places as the place of occurrence of the external cause; Y99.8 Other external cause status
CPT/HCPCS: 29505; 73562; 93971; 99284-25

== ENCOUNTER → 2021-11-05 | Outpatient (CLI) | payer MEDICARE, OTHER ==
[~2021-11-05] MED LIST changes: +POTA-121 PO; -POTA20TA4 PO
== END ==
LOC: LAB 13:23
PROVIDERS: ATTEND Internal Medicine Cardiovascular Disease
DX: Z01.812 Encounter for preprocedural laboratory examination (principal); Z20.822 Contact with and (suspected) exposure to COVID-19
CPT/HCPCS: U0003

== ENCOUNTER 2021-11-08 10:43 | Day surgery (SDC) | payer MEDICARE, OTHER ==
[~2021-11-08] VITALS: Ht 171.4 cm; Wt 117.9 kg
[~2021-11-08 10:43] MED LIST changes: +HYDROmorphone 2 MG/ML INJ. IVP PRN; +IV RINGERS,LACTATED 1000ML 1,000 ML IV SCH; +MORPHINE SULFATE 2 MG/ML INJ. IVP PRN; +PROCHLORPERAZINE 10 MG/2 ML VIAL. IVP PRN; +fentaNYL PF VIAL 100 MCG/2 ML VIAL IVP PRN
[2021-11-08] MEDS ORDERED: INSULIN LISPRO 100 UNIT/ML 3ML VIAL for OP,RR ONLY. SQ PRN (11:00)
[2021-11-08 11:16] VITALS: BP 178/65
--- NOTE | 2021-11-08 11:30 | EKG ---
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
[2021-11-08] MEDS ORDERED: LIDOCAINE 2% VISCOUS 15 ML SOLUTION. ONE (11:38)
[2021-11-08] MEDS ORDERED: LIDOCAINE 2% TOPICAL JELLY 30GM TUBE. TP ONE ×2 (11:38→11:45)
[2021-11-08] MEDS ORDERED: BENZOCAINE ONE 20% MUCOSAL SPRAY. (11:38)
[2021-11-08] MEDS ORDERED: BENZOCAINE ONE 20% MUCOSAL SPRAY. MM (11:45)
[2021-11-08] MEDS ORDERED: LIDOCAINE 2% VISCOUS 15 ML SOLUTION. SWSW ONE (11:45)
[2021-11-08 11:53] VITALS: BP 153/66
[2021-11-08 11:54] LABS: HEMATOCRIT 37.1 % (36.0-47.0); HEMOGLOBIN 11.9 g/dL (12.0-15.5); RED BLOOD COUNT 3.83 x10^6/uL (3.50-5.40); WHITE BLOOD COUNT 7.9 x10^3/uL (4.0-11.0)
[2021-11-08] MEDS ORDERED: PHENYLEPHRINE in 0.9% NACL PF 1 MG/10 ML SYRINGE. IV ONE (11:58)
[2021-11-08] MEDS ORDERED: PROPOFOL 10 MG/ML (20ML) VIAL. IV ONE (11:58)
[2021-11-08] MEDS ORDERED: ePHEDrine PF IN SALINE 50 MG/10 ML SYRINGE. IV ONE (11:58)
[2021-11-08 12:05] LABS: PROTHROMBIN TIME PATIENT 16.4 SEC (11.7-14.0)
[2021-11-08 12:09] LABS: CALCIUM 8.7 mg/dL (8.5-10.1); CREATININE 1.6 mg/dL (0.6-1.0); GFR 32.1; POTASSIUM 4.4 mmol/L (3.5-5.1)
[2021-11-08] MEDS ORDERED: INSULIN LISPRO 100 UNIT/ML 3ML VIAL for OP,RR ONLY. SQ ONE (12:25)
--- NOTE | 2021-11-08 12:52 | EKG ---
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
== END 2021-11-08 13:49 | disposition home or self-care (01) ==
LOC: SURG 10:43
PROVIDERS: ATTEND Internal Medicine Cardiovascular Disease
DX: I48.91 Unspecified atrial fibrillation (principal); Z53.8 Procedure and treatment not carried out for other reasons; J44.9 Chronic obstructive pulmonary disease, unspecified; E66.9 Obesity, unspecified; K21.9 Gastro-esophageal reflux disease without esophagitis; I12.0 Hypertensive chronic kidney disease with stage 5 chronic kidney disease or end stage renal disease; E11.22 Type 2 diabetes mellitus with diabetic chronic kidney disease; N18.2 Chronic kidney disease, stage 2 (mild); E03.9 Hypothyroidism, unspecified; M19.90 Unspecified osteoarthritis, unspecified site; E78.00 Pure hypercholesterolemia, unspecified; Z90.49 Acquired absence of other specified parts of digestive tract; Z98.51 Tubal ligation status; Z98.890 Other specified postprocedural states; Z79.899 Other long term (current) drug therapy; Z79.82 Long term (current) use of aspirin; Z72.89 Other problems related to lifestyle; Z88.2 Allergy status to sulfonamides
CPT/HCPCS: 36415; 80048; 85027; 85610; 93005; J1815; J2370; J2704